=== PATIENT | male | born 1935 | race Caucasian/White ===

== ENCOUNTER → 2020-01-04 | Outpatient (CLI) | payer OTHER | LOC: SJCVC 13:37 | PROVIDERS: ATTEND Internal Medicine Cardiovascular Disease | DX: R94.31 Abnormal electrocardiogram [ECG] [EKG] (principal); I10 Essential (primary) hypertension; R42 Dizziness and giddiness; R47.01 Aphasia; Z79.82 Long term (current) use of aspirin ==

== ENCOUNTER → 2020-01-26 | Outpatient (CLI) | payer OTHER ==
[~2020-01-26] MED LIST: ASA81BEC PO; CARVEDILOL12.5 MG PO; LIPITOR40 MG PO; OMEPRAZOLE 20 M20 M1 PO
== END ==
LOC: SJCVCIMAG 08:59
PROVIDERS: ATTEND Internal Medicine Cardiovascular Disease
DX: I08.3 Combined rheumatic disorders of mitral, aortic and tricuspid valves (principal); I21.4 Non-ST elevation (NSTEMI) myocardial infarction; R00.0 Tachycardia, unspecified; I49.3 Ventricular premature depolarization; I49.1 Atrial premature depolarization; I10 Essential (primary) hypertension; I25.10 Atherosclerotic heart disease of native coronary artery without angina pectoris; I42.9 Cardiomyopathy, unspecified; E78.00 Pure hypercholesterolemia, unspecified; Z79.899 Other long term (current) drug therapy

== ENCOUNTER → 2020-02-10 | Outpatient (CLI) | payer OTHER | LOC: SJCVC 15:02 | PROVIDERS: ATTEND Internal Medicine Cardiovascular Disease | DX: R94.31 Abnormal electrocardiogram [ECG] [EKG] (principal); I11.9 Hypertensive heart disease without heart failure; I25.10 Atherosclerotic heart disease of native coronary artery without angina pectoris; R42 Dizziness and giddiness; E78.00 Pure hypercholesterolemia, unspecified ==

== ENCOUNTER → 2020-02-13 | Outpatient (CLI) | payer OTHER ==
[~2020-02-13] VITALS: Ht 180.3 cm; Wt 71.7 kg
[2020-02-13 08:30] VITALS: BP 165/83
[2020-02-13 08:51] LABS: HEMATOCRIT 45.1 % (42.0-52.0); HEMOGLOBIN 15.1 gm/dL (14.0-18.0); MCH 33.8 pg (26.0-34.0); MCHC 33.5 g/dL (28.0-37.0); RBC 4.47 mil/uL (4.50-6.00); RDW 13.5 % (10.5-14.5); WBC 6.7 thou/uL (4.0-11.0)
[2020-02-13 08:59] LABS: CALCIUM 8.8 mg/dL (8.5-10.1); POTASSIUM 3.9 mmol/L (3.5-5.1)
[2020-02-13 09:13] LABS: ALBUMIN 3.9 g/dL (3.4-5.0); DIRECT BILIRUBIN 0.2 mg/dL (<0.1-0.2); TOTAL BILIRUBIN 0.7 mg/dL (0.2-1.0); TOTAL PROTEIN 7.4 g/dL (6.4-8.2)
[2020-02-13 09:44] LABS: CHOLESTEROL 111 mg/dL (<200); HDL CHOLESTEROL 41 mg/dL (>40); LDL CHOLESTEROL 58 mg/dL (<100); TC:HDL 2.7 Ratio (Not establshd); TRIGLYCERIDE 61 mg/dL (<150); VLDL 12 mg/dL (<40)
--- NOTE | 2020-02-13 11:38 | CATHLAB ---
[facility] [place] [address] [place] [address] INVASIVE PROCEDURE REPORT Name: CHAYITO QUINTANA Room #: REG JANEL Foley#: [id number] Admission: 02/13/20 Attend Phys: Cuong Palacios MD Discharge: Date of : 33 Report #: [id number] THIS REPORT FOR: cc: Donald Cabrera Gregory DO Park, Jin S. MD ~ APPROVED REPORT Study performed: 02/13/2020 08:59:51 Patient Details Patient Status: Out-Patient Room #: The patient is a 84 year-old male Event Personnel Cuong Palacios Equity Structurer, Gregoria Navas RTR, ENERGY TRADER Monitor, Silvio Do RTR Scrub, Prachi Hoyos RN strategic debriefing specialist Performed Art Access - R femoral artery* Left Heart Cath w/or w/o Coronaries [id number] [facility] [address]56 Initial Mod Sed Same Phys/QHP Gr5y 850070 26855 Mod Sed Same Phys/QHP Ea 114643 94091 Mod Sed Same Phys/QHP Ea 242487 Hemostasis with Manual pressure Indication Dyspnea, Positive stress test Risk Factors Hypercholesterolemia, Hypertension Procedure Narrative The Right Groin^ was infiltrated with 1% Lidocaine subcutaneous anesthesia. A PINNACLE 4FR Sheath #[id number] sheath was inserted into the RFA^. Coronary angiography was performed using coronary diagnostic catheters. The right coronary system was accessed and visualized with a JR4 catheter. The left coronary system was accessed and visualized with a JL4 catheter. The left ventricle was accessed and visualized with a angled pigtail catheter. Left ventricular/Aortic Valve gradient assessed via catheter pullback. Left ventriculogram was performed in 30 degree projection. Hemostasis was obtained with manual pressure following sheath removal without any complications. The patient tolerated the procedure well and there were no complications associated with the procedure. There was no [facility] [place] [address] [place] [address] INVASIVE PROCEDURE REPORT Name: CHAYITO QUINTANA Room #: REG [facility]#: [id number] Admission: 02/13/20 Attend Phys: Cuong Palacios MD Discharge: Date of : 33 Report #: [id number] hematoma. Intraoperative Conscious Sedation Sedation start time: 09:37 Case end Time: 10:17 Fentanyl 50 mcg Versed 1 mg Fluoro Time: 5.70 minutes Dose: DAP 5522.00 cGycm2 1468 mGy Contrast Type and Amount: Omnipaque 130 ml Coronary Angiography The patient's coronary anatomy is right dominant. Diagnostic Cath Left Main The left main artery is calcified with mild to moderate disease. LAD The LAD is a moderate-sized caliber vessel, traverses the anterior wall and wraps around the apex. Just after the takeoff of the first diagonal artery, there is a severe occlusion in the proximal segment, 70 to 80%. Diagonal 1 This is a moderate-sized caliber vessel with a severe, ostial stenosis, 80 to 90%. OM1 There is a subtotal occlusion in the proximal segment. After the obstruction, the remaining segments of the vessel is filled via bridging collaterals. OM2 This is a small caliber vessel, with no flow-limiting lesions. Right Coronary The RCA total occlusion in the midsegment. The PDA and RPL branches are partially filled via bridging collaterals and collaterals from septal perforators. Left Ventriculography The left ventricle is mildly dilated in size with Diminished contractility. The left ventricular ejection fraction is estimated to be 35%. There is hypokinesis of the inferior and distal anteroapical segments. Hemodynamics The aortic pressure is 160/78 mmHg with a mean of 110 mmHg. The left ventricular pressure is 155/7 mmHg with a mean of mmHg. The left ventricular end diastolic pressure is 17 mmHg. Conclusion 1. Severe multivessel disease. 2. Moderately severe LV dysfunction. [facility] [address] [place] [address] INVASIVE PROCEDURE REPORT Name: CHAYITO QUINTANA Room #: REG CL [facility]#: [id number] Admission: 02/13/20 Attend Phys: Cuong Palacios MD Discharge: Date of : 33 Report #: [id number] 3. Recommend CV surgical consultation. Consider staged angioplasty of LAD. 4. Recommend guideline directed medical therapy. <ELECTRONICALLY SIGNED> By: Cuong Palacios MD 02/13/20 1138 37 37 Cuong Palacios MD /INF
--- NOTE | 2020-02-17 16:12 | HC ---
[facility] [place] [address] [place] [address] CONSULTATION Name: CHAYITO QUINTANA Room #: REG JANEL Foley#: [id number] Admission: 02/13/20 Attend Phys: Cuong Palacios MD Discharge: Date of : 33 Report #: [id number] THIS REPORT FOR: cc: Donald Cabrera,Donald Mcconnell,Migel Barrios MD ~ DATE OF SERVICE: 02/13/2020 We were asked to see the patient by Dr. Palacios. HISTORY OF PRESENT ILLNESS: The patient is an 84-year-old with coronary artery disease. The patient states he presents with a history of vertigo symptoms. At some point, he was referred to Cardiology and had stress testing that showed inferolateral myocardial infarct. The patient states he has occasional episodes of fatigue and shortness of breath, but no angina. The patient states he has an active lifestyle and raises horses on a farm. Cardiac catheterization today reveals 40% left main, 80% LAD and first diagonal lesions and total occlusion of the right coronary artery, circumflex system is diminutive. Left ventricular function is reduced with an ejection fraction of approximately 35%. ALLERGIES: None known. MEDICATIONS: The patient states he had taken aspirin alone until recently when atorvastatin and carvedilol were added. The patient also takes Prilosec. PAST MEDICAL HISTORY: The patient denies diabetes. He is treated for hypertension. 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 . Nonsmoker, no alcohol. REVIEW OF SYSTEMS: GENERAL: No change in weight. No fever. EYES: Wears glasses. No recent vision change. ENT: Has had cerumen impactions in ear. No sinus problems. CARDIAC: Denies angina. Some shortness of breath with extreme exertion. GASTROINTESTINAL: Some gastroesophageal reflux. No nausea, vomiting, blood. GENITOURINARY: No urgency, frequency, blood. MUSCULOSKELETAL: No bone or joint complaints. SKIN: No rash or infection. NEUROLOGIC: No motor or sensory loss. HEMATOLOGIC: No bruisability or bleeding. [facility] [address] [place] [address] CONSULTATION Name: CHAYITO QUINTANA Room #: REG [facility]#: [id number] Admission: 02/13/20 Attend Phys: Cuong Palacios MD Discharge: Date of : 33 Report #: [id number] PHYSICAL EXAMINATION: CONSTITUTIONAL: The patient is sitting up, ready to go home after cardiac catheterization. VITAL SIGNS: Blood pressure 130/80, heart rate 60. HEENT: No scleral icterus, no arcus. NECK: No mass, no bruit. CHEST: Clear. HEART: Rhythm regular, no murmur. ABDOMEN: Soft. EXTREMITIES: No clubbing, cyanosis or edema. SKIN: No rash or infection. MUSCULOSKELETAL: No bone or joint asymmetry or deformity. NEUROLOGIC: No motor or sensory loss. PSYCHIATRIC: Shows insight into problem, is a pleasant fellow and answers questions appropriately. Oriented x 3. ASSESSMENT: The patient has coronary artery disease with minimal symptoms and it is not clear that the patient's presenting complaints are related to these. I will refer the catheterization findings with Dr. Palacios. The patient states he is slated to see Dr. Palacios in the office in 2 weeks and I have invited the patient to visit me in the office, so that we can review his catheterization, if Dr. Palacios feels such things as appropriate. Risks and details of coronary bypass surgery were discussed in general; the patient understands all of this and agrees with this approach. I thank you for the consult. <ELECTRONICALLY SIGNED> By: Migel Newton MD 02/17/20 1612 1320 1427 Migel Newton MD /nt
== END | disposition home or self-care (01) ==
LOC: CATH 06:26
PROVIDERS: ATTEND Internal Medicine Cardiovascular Disease
DX: R94.39 Abnormal result of other cardiovascular function study (principal); I25.10 Atherosclerotic heart disease of native coronary artery without angina pectoris; R06.00 Dyspnea, unspecified; I10 Essential (primary) hypertension; E78.00 Pure hypercholesterolemia, unspecified; E78.5 Hyperlipidemia, unspecified; K21.9 Gastro-esophageal reflux disease without esophagitis; Z98.890 Other specified postprocedural states; Z79.899 Other long term (current) drug therapy; Z79.82 Long term (current) use of aspirin; Z90.49 Acquired absence of other specified parts of digestive tract

== ENCOUNTER → 2020-02-27 | Outpatient (CLI) | payer OTHER | LOC: SJCVC 15:12 | PROVIDERS: ATTEND Internal Medicine Cardiovascular Disease | DX: R94.31 Abnormal electrocardiogram [ECG] [EKG] (principal); I49.1 Atrial premature depolarization; I11.9 Hypertensive heart disease without heart failure; I25.10 Atherosclerotic heart disease of native coronary artery without angina pectoris; E78.00 Pure hypercholesterolemia, unspecified; I42.9 Cardiomyopathy, unspecified; Z79.82 Long term (current) use of aspirin; Z79.899 Other long term (current) drug therapy ==

== ENCOUNTER → 2020-04-30 | Outpatient (CLI) | payer OTHER | LOC: SJCVC 10:24 | PROVIDERS: ATTEND Internal Medicine Cardiovascular Disease | DX: R94.31 Abnormal electrocardiogram [ECG] [EKG] (principal); I49.9 Cardiac arrhythmia, unspecified; I25.10 Atherosclerotic heart disease of native coronary artery without angina pectoris; I25.5 Ischemic cardiomyopathy; I10 Essential (primary) hypertension; E78.00 Pure hypercholesterolemia, unspecified; Z79.82 Long term (current) use of aspirin; Z79.899 Other long term (current) drug therapy ==

== ENCOUNTER 2020-05-10 06:31 | Observation (INO) | payer OTHER ==
[~2020-05-10] VITALS: Ht 152.4 cm; Wt 70.3 kg
[2020-05-10] VITALS (11 sets, daily range): BP systolic 113–168; BP diastolic 61–85
[2020-05-10] MEDS ORDERED: COZAAR 25 MG TA25 M1 PO (07:30)
[2020-05-10] MEDS ORDERED: TOPROL XL25 MG PO (07:31)
[2020-05-10 07:35] LABS: HEMATOCRIT 45.8 % (42.0-52.0); HEMOGLOBIN 14.9 gm/dL (14.0-18.0); MCH 32.8 pg (26.0-34.0); MCHC 32.6 g/dL (28.0-37.0); MCV 100.8 fL (80.0-100.0); RBC 4.55 mil/uL (4.50-6.00); RDW 13.5 % (10.5-14.5); WBC 6.5 thou/uL (4.0-11.0)
[2020-05-10 07:38] LABS: CALCIUM 8.8 mg/dL (8.5-10.1); CREATININE 1.1 mg/dL (0.7-1.3); POTASSIUM 3.6 mmol/L (3.5-5.1)
--- NOTE | 2020-05-10 12:17 | NUR ---
REPORT CALLED TO MARCO RUFF. WILL PULL SHEATH TO RIGHT GROIN PRIOR TO TAKING PT TO CCU. MARCO AWARE.
--- NOTE | 2020-05-10 13:30 | EKG ---
[place] [address] [facility] [address] [place] [address] ELECTROCARDIOGRAM REPORT Name: CHAYITO QUINTANA [id number] Admission: 05/10/20 Attend Phys: Cuong Palacios MD Discharge: Date of : 33 Report #: [id number] [facility] Test Date: 2020-05-10 Test Time: 13:09:01 Pat Name: CHAYITO QUINTANA Department: Room: Gender: Sales Executive: JENNIFER : 1935 Requested By: Cuong Palacios Order Number: [id number] MD: Talon Galvin Measurements Intervals [place] Rate: 79 P: 80 CO: 214 QRS: 33 QRSD: 109 T: QT: 406 QTc: 466 Interpretive Statements Sinus rhythm Ventricular trigeminy Borderline prolonged CO interval Probable left atrial enlargement Inferior infarct, old Lateral leads are also involved No previous ECG available for comparison Electronically Signed On 05-10-2020 13:30:33 GAUGE MAKER by Talon Galvin [email or web address] <ELECTRONICALLY SIGNED> By: Talon Galvin MD, [facility] 05/10/20 1330 1309 1309 Talon Galvin MD, FACC /EPI
--- NOTE | 2020-05-10 14:33 | CATHLAB ---
[facility] [place] [address] [place] [address] INVASIVE PROCEDURE REPORT Name: CHAYITO QUINTANA Room #: 214-P ADM Romain MDanielle#: [id number] Admission: 05/10/20 Attend Phys: Cuong Palacios MD Discharge: Date of : 33 Report #: [id number] THIS REPORT FOR: cc: Donald Cabrera Gregory DO Park, Jin S. MD ~ APPROVED REPORT Study performed: 05/10/2020 08:34:49 Patient Details Patient Status: Out-Patient Room #: The patient is a 85 year-old male Event Personnel Cuong Palacios Customer Care Assistant, Analilia Syed RN RN, Sreekanth Daniel RTMorgan Abdalla Roberta Monitor Procedures Performed Art Access - R femoral artery* FANG Place w/wo Plasty Single LAD 827443 PTCA Addl Branch DIAG [id number] w/wo Plasty Single Left Main 460992 44433 Initial Mod Sed Same Phys/QHP Gr5y 176347 47208 Mod Sed Same Phys/QHP Ea 621752 Indication Dyspnea, Positive stress test, The patient has known severe three-vessel coronary artery disease from February 2020. Evaluated by CV surgery, however the patient declined surgery. Now presents for elective PCI due to ongoing symptoms of dyspnea and fatigue. Risk Factors Hypercholesterolemia, Coronary Artery Disease Previous Procedures/Diagnoses Previous AR Procedure Narrative The Right Groin^ was infiltrated with 1% Lidocaine subcutaneous anesthesia. A PINNACLE 6FR Sheath #[id number] sheath was inserted into the RFA 6X11^. Coronary angiography was performed using coronary diagnostic catheters. SHEATH WAS SUTTURED IN PLACE - TO BE PULLED BY CV STAFF, AND MANUAL PRESSURE TO BE HELD. Intraoperative Conscious Sedation [facility] [employer] [address] INVASIVE PROCEDURE REPORT Name: CHAYITO QUINTANA Room #: 214-P [facility] IN [facility]#: [id number] Admission: 05/10/20 Attend Phys: Cuong Palacios MD Discharge: Date of : 33 Report #: [id number] Sedation start time: 820 Case end Time: 1015 Fentanyl 100 mcg Versed 1 mg Fluoro Time: 30.30 minutes Dose: DAP 75679.00 cGycm2 2923 mGy Contrast Type and Amount: Omnipaque 290 ml Coronary Angiography The patient's coronary anatomy is right dominant. Diagnostic Cath Left Main The left main is calcified with a severe occlusion in the distal segment. LAD The LAD is calcified with a severe occlusion in the proximal segment, 80%. Diagonal 1 This is a moderate-sized caliber vessel with a severe, ostial stenosis. OM1 This vessel is totally occluded proximally, there are collaterals to the distal segment. Right Coronary The RCA is dominant with a total occlusion in the midsegment, there are collaterals to the distal segment. IVUS Intravascular Ultrasound was performed on the First diagonal artery vessel. Fractional Flow [place] was performed on the 95 vessel. A 3 Guide Catheter was used to engage the LAUNCHER 6FR EBU 3.5 #[id number] ostium. A Luge Wire .014 x 182CM #[id number] was used. IVUS Findings Euphora RX 2.0 x 10 #[id number] Hemodynamics The aortic pressure is 173/83 mmHg with a mean of 120 mmHg. PCI Technique Lesion Percutaneous coronary intervention was performed on the proximal left anterior descending artery segment. The lesion stenosis prior to intervention was 80% with ALLISON 3 flow. A LAUNCHER 6FR EBU 3.5 #177449 Guide Catheter was used to engage the ostium. A Luge Wire .014 x 182CM #[id number] Interventional Guidewire was used to cross the lesion. BALLOON DILATION A Balloon catheter Euphora RX 2.0 x12 #[id number] was inserted and [facility] [address] [place] [address] INVASIVE PROCEDURE REPORT Name: CHAYITO QUINTANA Room #: 214-P [facility]#: [id number] Admission: 05/10/20 Attend Phys: Cuong Palacios MD Discharge: Date of : 33 Report #: [id number] inflated up to 14atm for 21seconds. Repeat angiography revealed the following post-dilatation results: BALLOON POPPED AFTER 1ST INFLATION. EUPHORA 2.25X12 BALLOON INFLATED FOR 8 SHAILA FOR 13 SEC., THIS BALLOON ALSO POPPED. STENT DEPLOYMENT A stent RESOLUTE MANI RX 2.25 X 12 #[id number] was inserted and inflated up to 14.00atm for 20seconds. POST STENT DEPLOYMENT BALLOON DILATION A Balloon catheter TREK NC RX 2.5 X 8 #[id number] was inserted and inflated up to 18atm for 20seconds. Additional Inflation: 18.00atm for 17seconds. Final angiography reveals 0 % stenosis with ALLISON 3 flow. COMMENTS Initially, a luge wire was placed into the distal LAD. The LAD stenosis was dilated with a semicompliant and then a noncompliant balloon. During inflation, the balloons burst, probably from a calcified plaque. ALLISON-3 blood flow was maintained and the patient remained clinically stable. It was decided to proceed with stent placement, which was successful. PCI Technique Lesion Percutaneous coronary intervention was performed on the First diagonal artery. The lesion stenosis prior to intervention was 95% with ALLISON 3 flow. A LAUNCHER 6FR EBU 3.5 #345608 Guide Catheter was used to engage the ostium. A Luge Wire .014 x 182CM #226345 Interventional Guidewire was used to cross the lesion. BALLOON DILATION A Balloon catheter Euphora RX 2.0 x 10 #[id number] was inserted and inflated up to 8atm for 18seconds. Attempted ANGIOSCULPT BALLOON, but unable to deliver the balloon into position. POST STENT DEPLOYMENT BALLOON DILATION A Balloon catheter TREK NC RX 2.25 X 8 #[id number] was inserted and inflated up to 16atm for 28seconds. Final angiography reveals 60 % stenosis with ALLISON 3 flow. PCI Technique Lesion 2 Percutaneous Coronary Intervention was performed on the Distal left main stenosis. The lesion stenosis prior to intervention was 70% with [facility] [address] [place] [address] INVASIVE PROCEDURE REPORT Name: CHAYITO QUINTANA Room #: 214-P [facility] IN [place]#: [id number] Admission: 05/10/20 Attend Phys: Cuong Palacios MD Discharge: Date of : 33 Report #: [id number] ALLISON 3 flow. A LAUNCHER 6FR EBU 3.5 #475122 Guide Catheter was used to engage the ostium. A Luge Wire .014 x 182CM #[id number] Interventional Guidewire was used to cross the lesion. Balloon Dilation A Balloon catheter EUPHORA 3.0X10 was inserted and inflated up to 14atm for 7seconds. Stent Deployment A stent RESOLUTE MANI RX 3.0 X 12 #[id number] was inserted and inflated up to 12atm for 9seconds. Additional Inflation: 18atm for 8seconds. Post Stent Deployment Balloon Dilation A Balloon catheter TREK NC RX 3.5 X 12 #[id number] was inserted and inflated up to 18atm for 6seconds. Additional Inflation: 18atm for 20seconds. Final angiography reveals 0 % stenosis with ALLISON 3 flow. PCI Technique Lesion 3 Percutaneous Coronary Intervention was performed on the LM. Conclusion 1. Successful placement of a drug-eluting stent into the proximal LAD stenosis. 2. Successful placement of a drug-eluting stent into the left main stenosis. 3. POBA of the ostial first diagonal stenosis. 4. Occluded left circumflex and RCA arteries, with filling of the distal segments via collateral circulation. 5. Recommend dual antiplatelet therapy and aggressive risk factor management. <ELECTRONICALLY SIGNED> By: Cuong Palacios MD 05/10/20 1433 32 143 Cuogn Palacios MD /INF
--- NOTE | 2020-05-10 18:32 | NUR ---
ASSUMED PT FROM CAMPUS RECRUITER AT 1355. PT PRESENTS WITH C/O CARDIAC CATH. PT DENIES PAIN ARRIVAL TO UNIT. PTS ASSESSMENT UNCHANGED. PT IS ALERT AND ORIENTED X4, LCTA, S1S2, SINUS ARHYTHMIA ON ELECTRICAL ACCESSORIES ASSEMBLER. PT RESTING WITH NO DIFFICULTY AT THIS TIME. WENT HOME FOR THE EVENING. VSS. WILL CONTINUE TO MONITOR.
[2020-05-11 00:25] VITALS: BP 150/69
[2020-05-11 03:50] VITALS: BP 138/67
[2020-05-11 05:32] LABS: MCH 32.8 pg (26.0-34.0); MCHC 32.7 g/dL (28.0-37.0); MCV 100.4 fL (80.0-100.0); RBC 3.88 mil/uL (4.50-6.00); RDW 13.3 % (10.5-14.5); WBC 8.4 thou/uL (4.0-11.0)
[2020-05-11 05:49] LABS: HEMOGLOBIN 12.7 gm/dL (14.0-18.0)
[2020-05-11 06:08] LABS: ALBUMIN 3.2 g/dL (3.4-5.0); CALCIUM 8.5 mg/dL (8.5-10.1); CREATININE 0.9 mg/dL (0.7-1.3); POTASSIUM 3.8 mmol/L (3.5-5.1); TOTAL BILIRUBIN 0.7 mg/dL (0.2-1.0)
--- NOTE | 2020-05-11 07:17 | EKG ---
[facility] [place] [address] ELECTROCARDIOGRAM REPORT Name: CHAYITO QUINTANA Room #: 214-P [facility] M.R.#: [id number] Admission: 05/10/20 Attend Phys: Cuong Palacios MD Discharge: Date of : 33 Report #: [id number] [facility] Test Date: 2020-05-11 Test Time: 07:04:44 Pat Name: CHAYITO QUINTANA Department: Room: 214 P Gender: M Certification And Selection Specialist: JENNIFER : 1935 Requested By: Cuong Palacios Order Number: [id number] : Talon Galvin Measurements Intervals [place] Rate: 69 P: 71 WV: 208 QRS: 16 QRSD: 108 T: 73 QT: 388 QTc: 416 Interpretive Statements Sinus rhythm Probable LVH with secondary repol abnrm IWMI old Baseline wander in lead(s) V4 Compared to ECG 05/10/2020 13:09:01 Ventricular premature complex(es) no longer present Electronically Signed On 05-11-2020 7:17:16 BABBITTER by Talon Galvin [email or web address] <ELECTRONICALLY SIGNED> By: Talon Galvin MD, [facility] 05/11/20716 3 3 Talon Galvin MD, [facility] /[facility]
--- NOTE | 2020-05-11 07:55 | NUR ---
ASSESSMENTS CHARTED, MEDS CHARTED GIVEN. C/O ABDOMINAL PAIN TOWARD START OF SHIFT. ONE HYDROCODONE WAS GIVEN AND PATIENT SLEPT THROUGH SHIFT. RIGHT GROIN SITE LOOKS GOOD, SOFT. RECEIVED TWO STENTS. NO BLOOD PRESSURE TAKEN ON RIGHT ARM FOR [address] FALL PRECAUTIONS IN PLACE DURING SHIFT.
[2020-05-11] MEDS ORDERED: CLOPIDOGREL75 MG PO (08:07)
[2020-05-11 08:10] VITALS: BP 147/85
[2020-05-11 10:26] VITALS: BP 147/86
--- NOTE | 2020-05-11 10:50 | NUR ---
ASSUMED PT CARE AT 0700 THIS MORNING. PT VERBALIZED HE WAS READY TO BE D/C HOME. PTS ASSESSMENT NEGATIVE. VSS. PT RECEIVED D/C INSTRUCTIONS AT 1049. PT WHEELED OUT TO ER DOORS WITH RN.
== END 2020-05-11 10:55 | disposition home or self-care (01) ==
LOC: CATH 06:31 → 2N 13:56 → CATH 14:07 → 2N 05-11 10:55
PROVIDERS: ADMIT Internal Medicine Cardiovascular Disease; ATTEND Internal Medicine Cardiovascular Disease
DX: I25.110 Atherosclerotic heart disease of native coronary artery with unstable angina pectoris (principal); I10 Essential (primary) hypertension; E78.5 Hyperlipidemia, unspecified; Z79.82 Long term (current) use of aspirin; Z79.899 Other long term (current) drug therapy

== ENCOUNTER → 2020-05-18 | Outpatient (CLI) | payer OTHER ==
[~2020-05-18] MED LIST changes: +CLOPIDOGREL75 MG PO; +COZAAR 25 MG TA25 M1 PO; +TOPROL XL25 MG PO
== END ==
LOC: SJCVC 14:09
PROVIDERS: ATTEND Internal Medicine Cardiovascular Disease
DX: R94.31 Abnormal electrocardiogram [ECG] [EKG] (principal); I25.10 Atherosclerotic heart disease of native coronary artery without angina pectoris; I25.5 Ischemic cardiomyopathy; I10 Essential (primary) hypertension; E78.00 Pure hypercholesterolemia, unspecified; I51.7 Cardiomegaly; I49.1 Atrial premature depolarization; I49.3 Ventricular premature depolarization

== ENCOUNTER → 2020-11-16 | Outpatient (CLI) | payer OTHER | LOC: SJCVC 12:52 | PROVIDERS: ATTEND Internal Medicine Cardiovascular Disease | DX: R94.31 Abnormal electrocardiogram [ECG] [EKG] (principal); I11.9 Hypertensive heart disease without heart failure; I49.1 Atrial premature depolarization; I25.5 Ischemic cardiomyopathy; E78.00 Pure hypercholesterolemia, unspecified; I25.10 Atherosclerotic heart disease of native coronary artery without angina pectoris; Z79.82 Long term (current) use of aspirin; Z79.899 Other long term (current) drug therapy ==

== ENCOUNTER → 2021-05-21 | Outpatient (CLI) | payer OTHER | LOC: SJCVCIMAG 09:47 | PROVIDERS: ATTEND Internal Medicine Cardiovascular Disease | DX: I08.3 Combined rheumatic disorders of mitral, aortic and tricuspid valves (principal); I25.5 Ischemic cardiomyopathy; I25.10 Atherosclerotic heart disease of native coronary artery without angina pectoris; I10 Essential (primary) hypertension; E78.00 Pure hypercholesterolemia, unspecified; Z79.82 Long term (current) use of aspirin; Z79.899 Other long term (current) drug therapy ==